=== PATIENT | female | born 1985 | race American Indian/Alaskan Native ===

== ENCOUNTER 2017-09-14 18:30 | Emergency (ER) | payer SELFPAY ==
[2017-09-14 19:17] VITALS: BMI 24.8
[2017-09-14 19:18] VITALS: RESP 18; TEMP 98.9
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
[2017-09-14] MEDS ORDERED: Methocarbamol 500 MG Tab PO STA (20:12)
[2017-09-14 20:40] VITALS: BP 115/89; PULSE 85; O2SAT 100
[2017-09-14] MEDS ORDERED: Methocarbamol 500 MG Tab PO SCH (22:00)
== END 2017-09-14 20:39 | disposition home or self-care (01) ==
LOC: ED 18:30
DX: S13.4XXA Sprain of ligaments of cervical spine, initial encounter (principal); S16.1XXA Strain of muscle, fascia and tendon at neck level, initial encounter; V49.49XA Driver injured in collision with other motor vehicles in traffic accident, initial encounter; Y92.410 Unspecified street and highway as the place of occurrence of the external cause
CPT/HCPCS: 96372; 99283; J1885